=== PATIENT | female | born 1955 | race Hispanic/Latino ===

== ENCOUNTER 2017-11-28 11:56 | Emergency (ER) | payer OTHER ==
[~2017-11-28] VITALS: Ht 157.5 cm; Wt 99.8 kg
--- OUTSIDE RECORDS SUMMARY | 2017-11-28 11:58 | XMS REPORT | Clinical Summary ---
Author Author [facility] Address Unknown Phone Unavailable Care Team Providers Care [employer] P[employer] Name Role Phone PCP Unavailable Allergies Active Allergy Reactions Severity Noted Date Comments Cephalexin Rash Low 06/04/2016 Current Medications Prescription Sig. Disp. Refills Start End Date Status Date losartan (COZAAR) 50 MG Take 50 mg by mouth Active tablet daily. metFORMIN (GLUCOPHAGE) Take 500 mg by mouth 2 Active 500 MG tablet (two) times daily with breakfast and dinner. atenolol (TENORMIN) 50 MG Take 50 mg by mouth Active tablet daily. pravastatin (PRAVACHOL) Take 40 mg by mouth Active 40 MG tablet daily. cyclobenzaprine Take 5 mg by mouth 3 Active (FLEXERIL) 5 MG tablet (three) times daily as needed for Muscle spasms. naproxen (NAPROSYN) 500 Take 500 mg by mouth 2 Active MG tablet (two) times daily with breakfast and dinner. traMADol (ULTRAM) 50 mg Take 50 mg by mouth every Active tablet 6 (six) hours as needed for Pain. Active Problems Not on file Social History Tobacco Use Types Packs/Day Years Used Date Never Smoker Alcohol Use Drinks/Week oz/Week Comments Yes 3 Glasses of 1.8 wine Sex Assigned at Date Recorded Not on file Last Filed Vital Signs Not on file Plan of Treatment Not on file Results Not on fileafter 11/27/2016
[2017-11-28] MEDS ORDERED: TRAMADOL HCL 50 MG TAB PO ONE (12:15)
--- NOTE | 2017-11-28 12:56 | Diagnostic Imaging Report ---
Left hip - 2 views. Pelvis, AP HISTORY: Pain. COMPARISON: None available. FINDINGS: Bones: No acute displaced fracture. No expansile lytic or sclerotic lesion. Joints: The joint spaces are well-maintained. No dislocation. Degenerative changes of the lumbar spine. Soft tissues: The soft tissues appear unremarkable. Calcified uterine fibroid. IMPRESSION: No acute radiographic abnormality. Signed by: Dr. Raulito Love M.D. on 11/28/2017 12:52 PM
--- NOTE | 2017-11-28 12:57 | Diagnostic Imaging Report ---
Left Ankle - 3 views HISTORY: Pain. COMPARISON: None available. FINDINGS: Bones: No acute displaced fracture. No expansile lytic or sclerotic lesion. Joints: The joint spaces are well-maintained. No dislocation. Soft tissues: Soft tissue swelling is present in the lateral malleolus. IMPRESSION: Soft tissue swelling of the lateral malleolus, without underlying osseous abnormality, may represent ligamentous injury. Signed by: Dr. Raulito Love M.D. on 11/28/2017 12:53 PM
[2017-11-28 13:18] VITALS: BP 153/77
== END 2017-11-28 13:45 | disposition home or self-care (01) ==
LOC: ER 11:56
PROC: 2W3RX1Z Immobilization of Left Lower Leg using Splint (ICD-10-PCS; principal; 2017-11-28)
DX: S93.402A Sprain of unspecified ligament of left ankle, initial encounter (principal); M25.552 Pain in left hip; W01.0XXA Fall on same level from slipping, tripping and stumbling without subsequent striking against object, initial encounter; Y93.01 Activity, walking, marching and hiking; Y92.488 Other paved roadways as the place of occurrence of the external cause; R26.2 Difficulty in walking, not elsewhere classified; I10 Essential (primary) hypertension; E11.9 Type 2 diabetes mellitus without complications
CPT/HCPCS: 99284